=== PATIENT | female | born 1950 ===

== ENCOUNTER 2017-03-21 08:27 | Day surgery (SDC) | payer MEDICAID ==
[2016-11-12 19:23] VITALS: BMI 24.2
[2017-03-21] MEDS ORDERED: Propofol 10 mg/ml Inj (20 ML) ONE (10:04)
[2017-03-21] MEDS ORDERED: Lactated Ringer's 500 ML IV ONE (10:10)
== END 2017-03-21 23:00 | disposition home or self-care (01) ==
LOC: H.ENDO 08:27
PROVIDERS: ATTEND Internal Medicine Gastroenterology
DX: K50.90 Crohn's disease, unspecified, without complications (principal); K52.9 Noninfective gastroenteritis and colitis, unspecified; N82.3 Fistula of vagina to large intestine; R19.7 Diarrhea, unspecified

== ENCOUNTER 2017-04-22 18:57 | Observation (INO) | payer MEDICAID ==
[2017-04-22 18:57] VITALS: BMI 24.2
[2017-04-22 19:30] VITALS: BP 133/76; PULSE 92; RESP 16; TEMP 99.9; O2SAT 98
[2017-04-22] MEDS ORDERED: Sodium Chloride 0.9% 1,000 ML IV STA (20:24)
[2017-04-22] MEDS ORDERED: Iohexol 240 (50 ml) PO ONE (20:24)
--- NOTE | 2017-04-22 20:27 | ED PDOC ---
HPI: Abdomen Time Seen by Provider: 04/22/17 20:11 Chief Complaint (Nursing): Abdominal Pain Chief Complaint (Provider): abdominal pain History Per: Patient History/Exam Limitations: no limitations Onset/Duration Of Symptoms: Days (8) Current Symptoms Are (Timing): Still Present Location Of Pain/Discomfort: LLQ Quality Of Discomfort: Stabbing, "Pain" Associated Symptoms: Diarrhea (x 2 months). denies: Fever, Chills, Nausea, Vomiting, Constipation, Urinary Symptoms Additional History Per: Patient Additional Complaint(s): 66 y/o female history of Crohn's Disease presents for eval of left lower abdominal pain x 8 days. Associated nonbloody diarrhea (loose stool) x 2 months. Patient states pain worsened after eating, describes as "stabbing". Patient states she had colonoscopy 2 weeks ago and was told her Crohn's was "stable". Denies fever, nausea/vomiting, chest pain, shortness of breath, palpitations, recent travel, sick contacts, dysuria, hematuria. Patient seen by PMD Dr. Piper today and sent for outpatient abdominal/pelvic u/s and was advised to come to ED if symptoms persisted or worsened. Patient scheduled to have routine MRI study of abdomen tomorrow, ordered by GI at the same time her colonoscopy was. Past Medical History Reviewed: Historical Data, Nursing Documentation, Vital Signs Vital Signs: Last Vital Signs Temp 99.9 F H 04/22/17 19:27 Pulse 92 H 04/22/17 19:27 Resp 16 04/22/17 19:27 BP 133/76 04/22/17 19:27 Pulse Ox 98 04/23/17 05:45 - Medical History PMH: Anemia, Crohn's Disease, Gastritis, HTN, Migraine Denies: Chronic Kidney Disease - Surgical History Surgical History: Appendectomy, Cholecystectomy, Endoscopy - Family History Family History: States: Unknown Family Hx - Immunization History Hx Tetanus Toxoid Vaccination: No Hx Influenza Vaccination: No Hx Pneumococcal Vaccination: No - Home Medications Home Medications: Ambulatory Orders Medication Instructions Recorded Atropine Sulf/Hyoscymaine 5 ml PO PRN 01/22/15 [] Famotidine [Pepcid] 20 mg PO BID #0 01/26/15 predniSONE [predniSONE Tab] 10 mg PO BID #0 tab 01/26/15 Dicyclomine [Bentyl] 20 mg PO TID #21 tab 04/23/17 Famotidine [Pepcid] 20 mg PO BID #20 tab 04/23/17 - Allergies Allergies/Adverse Reactions: Allergies Allergy/AdvReac Type Severity Reaction Status Date / Time No Known Allergies Allergy Verified 01/21/15 16:15 Review of Systems ROS Statement: Except As Marked, All Systems Reviewed And Found Negative Gastrointestinal: Positive for: Abdominal Pain, Diarrhea Physical Exam - Reviewed Nursing Documentation Reviewed: Yes Vital Signs Reviewed: Yes - Physical Exam Appears: Positive for: Well, Non-toxic, No Acute Distress Head Exam: Positive for: ATRAUMATIC, NORMAL INSPECTION, NORMOCEPHALIC Skin: Positive for: Normal Color Eye Exam: Positive for: Normal appearance ENT: Positive for: Normal ENT Inspection Cardiovascular/Chest: Positive for: Regular Rate, Rhythm Respiratory: Positive for: Normal Breath Sounds Gastrointestinal/Abdominal: Positive for: Bowel Sounds, Soft, Tenderness (llq), Distended Back: Positive for: Normal Inspection Extremity: Positive for: Normal ROM Neurologic/Psych: Positive for: Alert, Oriented - Laboratory Results Result Diagrams: 04/22/17 22:45 04/22/17 22:45 - ECG ECG: Positive for: Viewed By Me (reviewed by ED attending) ECG Rhythm: Positive for: Sinus Rhythm O2 Sat by Pulse Oximetry: 98 - Progress ED Course And Treament: labs, urine, TV u/s, IV morphine EXAM: US Pelvis, Transvaginal CLINICAL HISTORY: 66 years old, female; Pain; Pelvic pain; Additional info: Left pelvic pain TECHNIQUE: Real-time transvaginal pelvic ultrasound (complete) with image documentation. Transvaginal imaging was used for better evaluation of the endometrium and adnexa. COMPARISON: No relevant prior studies available. FINDINGS: Uterus/cervix:Normal endometrial stripe thickness measuring 2 mm.No myometrial mass. Right ovary: Unremarkable. No mass. Normal blood flow. Left ovary: Not visualized Free fluid: No free fluid. Loops of bowel noted in the left lower quadrant/adnexal region IMPRESSION: Nonvisualized left ovary Otherwise, unremarkable pelvic ultrasound ED OBSERVATION Discharge: Yes Date of observation admission: 04/22/17 Time of observation admission: 22:00 - Observation admission statement Patient is being placed in observation because:: abdominal pain - Goals of Observation Goals of observation are:: will require PO contrast to obtain CT abd/pelvis to rule out acute abdominal pathology - Progress Note Progress Note: 04/22/17 23:46 Patient states she is now having burning sensation in upper abdomen and cannot drink PO contrast because she will vomit; IV pepcid and PO maalox ordered. Patient states this pain comes when she is stressed and has not eaten. 04/23/17 01:[address] Tan, GI fellow with Dr. Gutierrez; states if patient presenting acutely and need to do CT abd/pelvis can reschedule MR enterography test. 04/23/17 04:31 EXAM: CT Abdomen and Pelvis With Intravenous Contrast CLINICAL HISTORY: 66 years old, female; Pain; Abdominal pain; Localized; Left lower quadrant (llq) ; Prior surgery; Surgery date: 6+ months; Surgery type: Appendectomy. Cholecystectomy; Additional info: Left lower abdominal pain, h/o crohn's TECHNIQUE: Axial computed tomography images of the abdomen and pelvis with intravenous contrast. This CT exam was performed using one or more of the following dose reduction techniques : automated exposure control, adjustment of the mA and/or kV according to patient size, and/ or use of iterative reconstruction technique. Coronal and sagittal reformatted images were created and reviewed. CONTRAST: 90 mL of [id number] administered intravenously. COMPARISON: CT - ABD PELVIS W/O PO OR IV CONT 01/22/2015 2:43:04 AM FINDINGS: Lower thorax: Small hiatal hernia. ABDOMEN: Liver: Fatty infiltration. Gallbladder and bile ducts: Cholecystectomy. Mild prominence of common bile duct , stable. Pancreas: No ductal dilation. No mass. Spleen: No splenomegaly. Adrenals: No mass. Kidneys and ureters: Few renal cysts. Several too small to characterize lesions within kidneys. Punctate calculus within RIGHT kidney. No hydronephrosis. Stomach and bowel: Postsurgical changes of RIGHT colon/distal small bowel. No definite mural thickening. No obstruction. Fat containing lesion with hyperdense rim and adjacent stranding along border of distal descending colon. Appendix: Appendectomy. PELVIS: Bladder: Apparent mild bladder wall thickening. Incomplete distention, limiting evaluation. Reproductive: Unremarkable as visualized. ABDOMEN and PELVIS: Intraperitoneal space: No significant fluid collection. No free air. Bones/joints: No acute fracture. Soft tissues: Injection granulomas within gluteal soft tissues. Postsurgical changes of anterior abdominal wall. Vasculature: Minimal atherosclerotic disease. Lymph nodes: No pathologically enlarged lymph nodes. IMPRESSION: 1. Epiploic appendagitis of descending colon. 2. Mild cystitis vs underdistention. Correlate with urinalysis. 3. Incidental/non-acute findings are described above. 04/23/17 04:56 Patient still with pain epigastric, LLQ area, although improved since arrival. GI cocktail ordered 5:[address] Piper, patient's PMD, who states patient can be discharged to follow up outpatient. 04/23/17 05:58 Patient states she is feeling better after GI cocktail. Patient educated on findings, discharged with instructions to follow up GI at scheduled appointment. Return to ED for worsening/concerning symptoms. Disposition - Clinical Impression Clinical Impression: Abdominal pain - Patient ED Disposition Is Patient to be Admitted: No Counseled Patient/Family Regarding: Studies Performed, Diagnosis, Need For Followup, Rx Given - Disposition Disposition: Routine/Home Disposition Time: 06:00 Condition: IMPROVED
[2017-04-22 23:07] LABS: BASO % 0.3 % (0.0-2.0); EOS # 0.1 K/uL (0.0-0.7); EOS % 1.8 % (0.0-4.0); HEMATOCRIT 42.3 % (34.0-47.0); LYMPH # 1.9 K/uL (1.0-4.3); LYMPH % 26.3 % (20.0-40.0); MEAN CELL VOLUME 85.3 fl (81.0-99.0); MEAN CORPUSCULAR HEMOGLOBIN 28.3 pg (27.0-31.0); MEAN CORPUSCULAR HGB CONC 33.1 g/dL (33.0-37.0); MEAN PLATELET VOLUME 9.8 fl (7.2-11.7); MONO # 0.6 K/uL (0.0-0.8); NEUT # 4.5 K/uL (1.8-7.0); NEUT % 63.6 % (50.0-75.0); NRBC % 0.1 % (0.0-0.0); RED CELL DISTRIBUTION WIDTH 14.8 % (11.5-14.5); WHITE BLOOD COUNT 7.1 K/uL (4.8-10.8)
[2017-04-22 23:08] LABS: RBC URINE 5 /hpf (0-3); URINE BILIRUBIN NEGATIVE (NEGATIVE); URINE BLOOD SMALL (NEGATIVE); URINE COLOR YELLOW (YELLOW); URINE GLUCOSE (UA) NEG (Normal); URINE KETONE NEGATIVE (NEGATIVE); URINE LEUKOCYTE ESTERASE NEG Leu/uL (Negative); URINE PROTEIN NEGATIVE (NEGATIVE); URINE UROBILINOGEN 0.2-1.0 mg/dL (0.2-1.0); WBC URINE 2 /hpf (0-5)
[2017-04-22 23:14] LABS: ALB/GLOB RATIO 1.2 (1.0-2.1); ALKALINE PHOSPHATASE 83 U/L (38-126); ALT/SGPT 31 U/L (9-52); AST/SGOT 47 U/L (14-36); BILIRUBIN,TOTAL 0.7 mg/dl (0.2-1.3); BLOOD UREA NITROGEN 15 mg/dl (7-17); CALCIUM 9.2 mg/dL (8.4-10.2); CARBON DIOXIDE 22 mmol/L (22-30); CHLORIDE 106 mmol/L (98-107); GFR AFRICAN-AMERICAN > 60; GLUCOSE,RANDOM 83 mg/dL (65-105); POTASSIUM 4.7 MMOL/L (3.6-5.0); SODIUM 138 mmol/l (132-148); TOTAL PROTEIN 7.6 G/DL (6.3-8.2)
[2017-04-22] MEDS ORDERED: Alum-Mag Hydrox-Simethicone Susp (30 mL) PO STA (23:44)
--- NOTE | 2017-04-23 04:27 | CT ---
EXAM: CT Abdomen and Pelvis With Intravenous Contrast CLINICAL HISTORY: 66 years old, female; Pain; Abdominal pain; Localized; Left lower quadrant (llq); Prior surgery; Surgery date: 6+ months; Surgery type: Appendectomy. Cholecystectomy; Additional info: Left lower abdominal pain, h/o crohn's TECHNIQUE: Axial computed tomography images of the abdomen and pelvis with intravenous contrast. This CT exam was performed using one or more of the following dose reduction techniques: automated exposure control, adjustment of the mA and/or kV according to patient size, and/or use of iterative reconstruction technique. Coronal and sagittal reformatted images were created and reviewed. CONTRAST: 90 mL of [id number] administered intravenously. COMPARISON: CT - ABD PELVIS W/O PO OR IV CONT 01/22/2015 2:43:04 AM FINDINGS: Lower thorax: Small hiatal hernia. ABDOMEN: Liver: Fatty infiltration. Gallbladder and bile ducts: Cholecystectomy. Mild prominence of common bile duct, stable. Pancreas: No ductal dilation. No mass. Spleen: No splenomegaly. Adrenals: No mass. Kidneys and ureters: Few renal cysts. Several too small to characterize lesions within kidneys. Punctate calculus within RIGHT kidney. No hydronephrosis. Stomach and bowel: Postsurgical changes of RIGHT colon/distal small bowel. No definite mural thickening. No obstruction. Fat containing lesion with hyperdense rim and adjacent stranding along border of distal descending colon. Appendix: Appendectomy. PELVIS: Bladder: Apparent mild bladder wall thickening. Incomplete distention, limiting evaluation. Reproductive: Unremarkable as visualized. ABDOMEN and PELVIS: Intraperitoneal space: No significant fluid collection. No free air. Bones/joints: No acute fracture. Soft tissues: Injection granulomas within gluteal soft tissues. Postsurgical changes of anterior abdominal wall. Vasculature: Minimal atherosclerotic disease. Lymph nodes: No pathologically enlarged lymph nodes. IMPRESSION: 1. Epiploic appendagitis of descending colon. 2. Mild cystitis vs underdistention. Correlate with urinalysis. 3. Incidental/non-acute findings are described above.
[2017-04-23] MEDS ORDERED: Alum-Mag Hydrox-Simethicone Susp (30 mL) PO STA (05:11)
[2017-04-23] MEDS ORDERED: Atrop/Hyos/Scop/PhenoB Elixir PO STA (05:12)
--- NOTE | 2017-04-23 10:34 | US ---
HISTORY: left pelvic pain COMPARISON: None available. TECHNIQUE: Transvaginal pelvic ultrasound FINDINGS: UTERUS: Measures 4.3 x 1.9 x 3.2 cm. Anteverted. ENDOMETRIUM: Measures 2 mm in diameter. CERVIX: No cervical abnormality identified. RIGHT OVARY: Measures 1.4 x 0.7 x 1.3 cm. Blood flow is demonstrated. LEFT OVARY: Not visualized. FREE FLUID: No significant free fluid noted. OTHER FINDINGS: Multiple bowel loops are noted in the left lower quadrant/adnexal region. IMPRESSION: The left ovary is not visualized. Preliminary impression was provided by virtual radiologic.
--- NOTE | 2017-04-23 17:33 | CARD ---
APPROVED REPORT EKG Measurement Heart [id number] <Conclusion> Normal sinus rhythm Low voltage QRS Borderline ECG
== END 2017-04-23 05:59 | disposition home or self-care (01) ==
LOC: H.ER 18:57 → H.EROBSV 22:00
PROVIDERS: ADMIT Emergency Medicine; ATTEND Emergency Medicine
DX: R10.32 Left lower quadrant pain (principal); R10.2 Pelvic and perineal pain; K50.90 Crohn's disease, unspecified, without complications; K29.70 Gastritis, unspecified, without bleeding; D64.9 Anemia, unspecified; I10 Essential (primary) hypertension; G43.909 Migraine, unspecified, not intractable, without status migrainosus

== ENCOUNTER 2017-04-23 08:47 | Emergency (ER) | payer MEDICAID ==
[2017-04-23 08:54] VITALS: BP 142/86; PULSE 83; TEMP 98; O2SAT 96; BMI 25.4
--- NOTE | 2017-04-23 11:42 | ED PDOC ---
HPI: Abdomen Time Seen by Provider: 04/23/17 09:00 Chief Complaint (Nursing): Abdominal Pain Chief Complaint (Provider): abd pain History Per: Patient History/Exam Limitations: no limitations Onset/Duration Of Symptoms: Days (9) Outside of [place] travel?: No Current Symptoms Are (Timing): Still Present Context: Other (Crohn's Disease) Severity: Severe Location Of Pain/Discomfort: Diffuse Quality Of Discomfort: "Pain" Associated Symptoms: Diarrhea. denies: Nausea, Vomiting Alleviating Factors: None Additional History Per: Patient Additional Complaint(s): 66 y/o female with history of Crohn's Disease, complaining of abdominal pain x9 days associated with loose stool. She was was seen in this ED last night for the same complaint, and given Morphine and a GI cocktail, placed in ED obs, and discharged this morning with instruction to return to GI for further evaluation. However, patient complains that her pain persists and she returned for more pain medication - specifically requesting Demerol. Last night, patient also had a US and CT Abdomen. She denies any fever, chills. PMD: Dr. Piper Past Medical History Vital Signs: Last Vital Signs Temp 98 F 04/23/17 08:53 Pulse 83 04/23/17 08:53 Resp BP 142/86 04/23/17 08:53 Pulse Ox 96 04/23/17 17:26 - Medical History PMH: Anemia, Crohn's Disease, Gastritis, HTN, Migraine Denies: Chronic Kidney Disease - Surgical History Surgical History: Appendectomy, Cholecystectomy, Endoscopy - Family History Family History: States: Unknown Family Hx - Social History Current smoker - smoking cessation education provided: No Alcohol: None Drugs: Denies - Immunization History Hx Tetanus Toxoid Vaccination: No Hx Influenza Vaccination: No Hx Pneumococcal Vaccination: No - Home Medications Home Medications: Ambulatory Orders Medication Instructions Recorded Atropine Sulf/Hyoscymaine 5 ml PO PRN 01/22/15 [] Famotidine [Pepcid] 20 mg PO BID #0 01/26/15 predniSONE [predniSONE Tab] 10 mg PO BID #0 tab 01/26/15 Dicyclomine [Bentyl] 20 mg PO TID #21 tab 04/23/17 Famotidine [Pepcid] 20 mg PO BID #20 tab 04/23/17 - Allergies Allergies/Adverse Reactions: Allergies Allergy/AdvReac Type Severity Reaction Status Date / Time No Known Allergies Allergy Verified 04/23/17 09:00 Review of Systems ROS Statement: Except As Marked, All Systems Reviewed And Found Negative Gastrointestinal: Positive for: Abdominal Pain, Diarrhea Physical Exam - Reviewed Nursing Documentation Reviewed: Yes Vital Signs Reviewed: Yes - Physical Exam Appears: Positive for: Well, Non-toxic Skin: Positive for: Normal Color, Warm, Dry Cardiovascular/Chest: Positive for: Regular Rate, Rhythm Respiratory: Positive for: Normal Breath Sounds. Negative for: Rales, Rhonchi, Wheezing Gastrointestinal/Abdominal: Positive for: Bowel Sounds, Soft. Negative for: Guarding, Rebound Extremity: Positive for: Normal ROM Neurologic/Psych: Positive for: Alert, Oriented, Mood/Affect - ECG O2 Sat by Pulse Oximetry: 96 Medical Decision Making Medical Decision Making: Initial Impression: Abdominal pain in the setting of Crohn's Disease Initial Plan: - Labs, Imaging, and Documentation from 04/22/17 reviewed - Dilaudid for pain control - reassessment On evaluation patient complaining of nausea, and given Zofran. Patient reevaluated and reports that she is feeling better. she tolerated po. She is medically stable and cleared for discharge home. All questions answered to the patient's satisfaction. Follow up with GI. Scribe Attestation: Documented by Teresa Ribeiro acting as a scribe for Cortney Portillo MD. MD Jiménezibe Attestation: All medical record entries made by the Scribe were at my direction and personally dictated by me. I have reviewed the chart and agree that the record accurately reflects my personal performance of the history, physical exam, medical decision making, and the department course for this patient. I have also personally directed, reviewed, and agree with the discharge instructions and disposition. Disposition - Clinical Impression Clinical Impression: Abdominal pain in female - Patient ED Disposition Is Patient to be Admitted: No Doctor Will See Patient In The: Office Counseled Patient/Family Regarding: Studies Performed, Diagnosis, Need For Followup - Disposition Disposition: Routine/Home Disposition Time: 11:00 Condition: IMPROVED Additional Instructions: follow up with Dr Piper in 2 days and with your GI doctor return to the ED with any worsening or concerning symptoms. Instructions: Abdominal Pain (ED)
--- NOTE | 2017-04-23 17:37 | CARD ---
APPROVED REPORT EKG Measurement Heart [id number] <Conclusion> Normal sinus rhythm Normal ECG
== END 2017-04-23 14:28 | disposition home or self-care (01) ==
LOC: H.ER 08:47
DX: K50.90 Crohn's disease, unspecified, without complications (principal); R10.9 Unspecified abdominal pain